=== PATIENT | female | born 1970 | race Caucasian/White ===

== ENCOUNTER → 2023-09-06 07:42 | Outpatient (REF) | payer OTHER, SELFPAY | LOC: HWRAD 07:42 | PROVIDERS: ATTENDING PHYSICIAN Advanced Practice Midwife; FAMILY PHYSICIAN Family Medicine | DX: N93.9 Abnormal uterine and vaginal bleeding, unspecified (principal) | CPT/HCPCS: 76830; 76856 ==

== ENCOUNTER 2023-09-09 07:46 | Emergency (ER) | payer OTHER, SELFPAY ==
[2023-09-09 07:47] VITALS: BP 152/80
[2023-09-09 08:08] VITALS: BP 152/88
--- NOTE | 2023-09-09 08:12 | ED.GENMED ---
History of Present Illness
General
Chief Complaint: Abdominal Symptoms
Source: patient
Exam Limitations: none
Time Seen by Provider: 09/09/23 07:58
Travel History
Have you had any contact with someone who has COVID-19?: No
Do you have any symptoms of coronavirus? Fever > 100 degrees, chills, cough, shortness of breath, sore throat, loss of taste or smell, muscle aches, or headache?: No
History of Present Illness
History of Present Illness:
52-year-old female presents with increased pelvic pain right greater than the left. She has had intermittent pelvic issues for quite some time. She admits that fairly constant vaginal bleeding for the last 2 months. She saw gynecology last week
and they ordered a pelvic ultrasound. She has a history of an ovarian cyst on the right side with a hydrosalpinx. The potential plan is to have her right ovary fallopian tube removed. She notes she is persistently bleeding and changing her tampon
or pad every hour. She notes she is slightly short of breath. Prior abdominal surgical history includes cholecystectomy. No urinary symptoms. No flank pain. No fever or vomiting
Past History
Past History
ED Past Medical History: Other (IBS, Ovarian cyst)
ED Past Surgical History: Cholecystectomy
Social History
Tobacco: Non-smoker
Alcohol: None
Personal:
Living: with family
Phy Exam
Physical Exam
Physical Exam:
General: Well-appearing female no acute respiratory distress
HEENT: Normocephalic atraumatic
Heart: Regular rate and rhythm no murmurs
Lungs: Clear to auscultation bilaterally no wheezing
Abdomen is soft tender to the suprapubic region no guarding or rebound normal bowel sounds
Extremities: No cyanosis
Course
Orders/Labs/Results
Orders:
Orders
09/09/23 08:11
Test Result ONCE
09/09/23 08:16
Complete Blood Count/With Diff Urgent
09/09/23 09:00
Comprehensive Metabolic Panel Urgent
HCG, Serum Qualitative Screen Urgent
09/09/23 09:02
CT Abd/pelvis W Iv Cont Urgent
Comment:
Reason For Exam: pelvic pain
09/09/23 10:29
Urinalysis Reflex To Culture Urgent
Date Specimen was Collected: 09/09/23
Time Specimen was Collected: 09:42
Urine Microscopic Reflex Cult Urgent
09/09/23 12:07
Ketorolac [Toradol] 15 mg IV NOW STA
Abnormal Lab Results
09/09/23 09/09/23 09/09/23
08:16 09:00 10:29
WBC 24.8 H 10^3/uL
(4.8-10.8)
Hgb 9.0 L g/dL
(12.0-16.0)
Hct 29.5 L %
(37.0-47.0)
MCV 68.3 L fL
(81.0-99.0)
MCH 20.8 L pg
(27.0-31.0)
MCHC 30.5 L g/dL
(33.0-37.0)
RDW 15.7 H %
(11.5-14.5)
Abs Immat Gran (auto) 0.2 H 10^3/uL
(0-0.05)
Absolute Neuts (auto) 21.3 H 10^3/uL
(1.4-6.5)
Absolute Monos (auto) 1.8 H 10^3/uL
(0.1-0.6)
Immature Gran % 0.8 H %
(0-0.5)
Neutrophils % 85.9 H %
(42.2-75.2)
Lymphocytes % 5.7 L %
(20.5-51.1)
Sodium 132 L mmol/L
(135-145)
BUN 6 L mg/dl
(7-17)
Glucose 121 H mg/dl
(70-99)
AST 53 H U/L
(14-36)
ALT 58 H U/L
(0-35)
Alkaline Phosphatase 162 H U/L
(38-126)
Urine Ketones 2+ A
(Negative)
Ur Occult Blood Reflex 3+ A
(Negative)
Urine RBC 3-6 A /HPF
(0-2)
09/09/23 08:16
09/09/23 09:00
Vital Signs
Initial and Last Documented VS:
Initial Vital Signs
Temp Pulse Resp BP Pulse Ox
97.6 F 100 16 152/80 97
09/09/23 07:47 09/09/23 07:47 09/09/23 07:47 09/09/23 07:47 09/09/23 07:47
Last Documented Vital Signs
Temp Pulse Resp BP Pulse Ox
97.6 F 100 16 130/73 99
09/09/23 07:47 09/09/23 07:47 09/09/23 07:47 09/09/23 09:00 09/09/23 09:15
MDM/Problems Addressed
Differential Diagnosis Includes:
Pelvic pain with ongoing vaginal bleeding. Will check for anemia secondary to bleeding. Patient had pelvic ultrasound done 2 days ago which I reviewed and demonstrates cystic mass in the right adnexa likely ovarian cyst with a hydrosalpinx. Will
check labs. Check urinalysis and test.
*Critical Care Note
Total Time (30-74mins, 75-104mins- exclusive of procedures): Not Applicable
Update Note
Update Note:
Patient reevaluated multiple times. She was given Toradol for pain. Labs reveal leukocytosis with a white blood cell count of 24.8. She is afebrile vital signs are stable. CT demonstrates thickened endometrium measuring 2.5 cm. Differential
could include endometritis versus endometrial hyperplasia of her neoplastic process. Discussed these findings as well as laboratory findings with gynecology who evaluated the patient in the room. Will start the patient on TXA for her ongoing
bleeding. Unlikely patient has endometritis. Patient will follow-up closely with gynecology for further evaluation. Hemoglobin is 9
ED Attending Note
-
Portions of this chart may have been created with voice recognition software.� Occasional wrong word or��sound alike� substitutions may have occurred due to the inherent limitations of voice recognition software.
Discharge Plan
Departure
Patient Disposition: Home (Routine Discharge)
Date of Disposition: 09/09/23
Time of Disposition: 12:56
Patient with high blood pressure during this ER visit?: No
Discharge Problem:
Pelvic pain
Instructions: Bleeding Between Periods
Prescriptions:
New
tranexamic acid 650 mg tablet
1,300 mg PO BID 7 Days Qty: 28 0RF
No Action
amitriptyline 10 MG tablet
30 mg PO HS
drospirenone-ethinyl estradiol 1 EACH tablet
1 tab PO DAILY
cyanocobalamin (vitamin B-12) 1,000 MCG tablet
5,000 mcg PO DAILY
rizatriptan 10 MG tablet,disintegrating
10 mg PO DAILYPRN PRN (Reason: migraine)
ferrous sulfate [FeroSul] 325 MG tablet
325 mg PO DAILY
Referrals:
Gregory Alcazar MD [Family Provider] -
Activity Restrictions/Additional Instructions:
Take medications that were prescribed to help slow bleeding down as directed. Please follow-up with your size mixer for sooner appointment. Return for worsening symptoms otherwise
Interventions
Interventions:
*Risk Screen - Suicide Last Done: 09/09/23 08:17
*General Assessment Last Done: 09/09/23 08:17
*Neglect/Abuse Screening Last Done: 09/09/23 08:17
*ED COVID-19 Vaccine History Last Done: 09/09/23 07:47
FU-Tfzrvb-Uhptitucyk Assessment Last Done: 09/09/23 08:18
[2023-09-09 08:26] LABS: % Basophils 0.2 % (0-2); % Eosinophils 0.1 % (0-6); % Immature Granulocytes 0.8 % (0-0.5); % Lymphocytes 5.7 % (20.5-51.1); % Monocytes 7.3 % (1.7-9.3); % Neutrophils 85.9 % (42.2-75.2); Absolute Basophils 0.1 10^3/uL (0-0.2); Absolute Immature Granulocytes 0.2 10^3/uL (0-0.05); Absolute Lymphocytes 1.4 10^3/uL (1.2-3.4); Absolute Monocytes 1.8 10^3/uL (0.1-0.6); Absolute Neutrophils 21.3 10^3/uL (1.4-6.5); Hematocrit 29.5 % (37.0-47.0); Mean Corp Hgb Conc. 30.5 g/dL (33.0-37.0); Mean Corpuscular Hgb 20.8 pg (27.0-31.0); Mean Corpuscular Volume 68.3 fL (81.0-99.0); Mean Platelet Volume 8.4 fL (7.4-10.4); Nucleated Red Blood Cells % 0 %; Platelet Count 378 10^3/uL (130-400); Red Blood Cell Count 4.32 10^6/uL (4.20-5.40); Red Cell Dist. Width 15.7 % (11.5-14.5); White Blood Cell Count 24.8 10^3/uL (4.8-10.8)
[2023-09-09 09:00] VITALS: BP 130/73
[2023-09-09 09:18] LABS: HCG, Serum Qualitative Screen Negative
[2023-09-09 09:22] LABS: ALT (SGPT) 58 U/L (0-35); AST (SGOT) 53 U/L (14-36); Albumin 3.8 g/dl (3.5-5.0); Alkaline Phosphatase 162 U/L (38-126); Blood Urea Nitrogen 6 mg/dl (7-17); Calcium 8.5 mg/dl (8.4-10.2); Carbon Dioxide 25 mmol/L (22-30); Chloride 102 mmol/L (98-107); Glucose 121 mg/dl (70-99); Potassium 4.5 mmol/L (3.5-5.1); Sodium 132 mmol/L (135-145); Total Bilirubin 1.2 mg/dl (0.2-1.3); Total Protein 6.7 g/dl (6.3-8.2); eGFR > 60.00
[2023-09-09 10:00] VITALS: BP 139/81
[2023-09-09 10:38] LABS: Urine Albumin Negative (Neg - Trace); Urine Bilirubin Negative (Negative); Urine Character Clear (Clear); Urine Color Yellow; Urine Glucose Negative (Negative); Urine Ketone 2+ (Negative); Urine Leukocyte Negative (Negative); Urine Nitrite Negative (Negative); Urine Occult Blood 3+ (Negative); Urine Specific Gravity 1.015 (<1.030); Urine Urobilinogen Negative (Neg - 1+)
[2023-09-09 10:44] LABS: Urine Mucus Few
[2023-09-09 10:45] LABS: Urine Amorphous Seen; Urine White Cell 0-2 /HPF (0-5)
[2023-09-09] MEDS: TORADOL 15 MG IV (12:58)
[2023-09-09 13:00] VITALS: BP 135/80
== END 2023-09-09 13:10 | disposition home or self-care (01) ==
LOC: EMR 07:46
PROVIDERS: Physician Assistant; EMERGENCY PHYSICIAN Emergency Medicine; FAMILY PHYSICIAN Family Medicine; OTHER PHYSICIAN Obstetrics & Gynecology
DX: R10.2 Pelvic and perineal pain (principal); R06.02 Shortness of breath; R93.89 Abnormal findings on diagnostic imaging of other specified body structures; N93.9 Abnormal uterine and vaginal bleeding, unspecified; Z90.49 Acquired absence of other specified parts of digestive tract
CPT/HCPCS: 99284; 96374; 74177; 80053; 81003; 81015; 84703; 85025; Q9967

== ENCOUNTER 2023-09-20 06:20 | Day surgery (SDC) | payer OTHER, SELFPAY ==
[2023-09-20] VITALS (9 sets, daily range): BP systolic 120–152; BP diastolic 66–82; BMI 43.5
[2023-09-20] MEDS: NORMOSOL-R 1000 IV (08:57)
== END 2023-09-20 11:36 | disposition home or self-care (01) ==
LOC: SDS 06:20
PROVIDERS: ATTENDING PHYSICIAN Obstetrics & Gynecology
DX: N93.9 Abnormal uterine and vaginal bleeding, unspecified (principal); N84.0 Polyp of corpus uteri
CPT/HCPCS: 58558; 88305

== ENCOUNTER → 2024-08-04 09:30 | Outpatient (REF) | payer OTHER, SELFPAY | LOC: HWRAD 09:30 | PROVIDERS: ATTENDING PHYSICIAN Obstetrics & Gynecology; FAMILY PHYSICIAN Family Medicine | DX: N93.9 Abnormal uterine and vaginal bleeding, unspecified (principal) | CPT/HCPCS: 76830; 76856 ==

== ENCOUNTER → 2024-09-04 07:27 | Outpatient (REF) | payer OTHER, SELFPAY | LOC: MRI 07:27 | PROVIDERS: ATTENDING PHYSICIAN Obstetrics & Gynecology; FAMILY PHYSICIAN Family Medicine | DX: R10.31 Right lower quadrant pain (principal) | CPT/HCPCS: 72197; A9575 ==

== ENCOUNTER 2024-09-22 07:03 | Day surgery (SDC) | payer OTHER, SELFPAY ==
[2024-09-15 10:52] LABS: % Basophils 0.8 % (0-2); % Immature Granulocytes 0.5 % (0-0.5); % Lymphocytes 23.1 % (20.5-51.1); % Monocytes 8.9 % (1.7-9.3); % Neutrophils 63.7 % (42.2-75.2); Absolute Basophils 0.1 10^3/uL (0-0.2); Absolute Eosinophils 0.2 10^3/uL (0-0.7); Absolute Lymphocytes 1.5 10^3/uL (1.2-3.4); Absolute Monocytes 0.6 10^3/uL (0.1-0.6); Absolute Neutrophils 4.2 10^3/uL (1.4-6.5); Hematocrit 44.3 % (37.0-47.0); Hemoglobin 13.4 g/dL (12.0-16.0); Mean Corp Hgb Conc. 30.2 g/dL (33.0-37.0); Mean Corpuscular Hgb 24.7 pg (27.0-31.0); Mean Corpuscular Volume 81.7 fL (81.0-99.0); Mean Platelet Volume 9.1 fL (7.4-10.4); Nucleated Red Blood Cells % 0 %; Platelet Count 326 10^3/uL (130-400); Red Blood Cell Count 5.42 10^6/uL (4.20-5.40); Red Cell Dist. Width 17.1 % (11.5-14.5); White Blood Cell Count 6.6 10^3/uL (4.8-10.8)
[2024-09-15 11:14] LABS: Blood Urea Nitrogen 12 mg/dl (7-17); Calcium 9.6 mg/dl (8.4-10.2); Carbon Dioxide 27 mmol/L (22-30); Chloride 104 mmol/L (98-107); Glucose 93 mg/dl (70-99); Potassium 4.9 mmol/L (3.5-5.1); Sodium 139 mmol/L (135-145); eGFR > 60.00
[2024-09-15 11:29] LABS: Beta HCG Quantitative < 2.39 mIU/ml
[2024-09-15 11:45] LABS: CA 125 10.2 U/mL (0-35)
[2024-09-15 14:09] VITALS: BMI 42.6
[2024-09-22] VITALS (7 sets, daily range): BP systolic 121–144; BP diastolic 66–82; BMI 42.6
[2024-09-22] MEDS: NORMOSOL-R/PLASMALYTE-A 1000 IV (11:05)
[2024-09-22] MEDS: TYLENOL 1000 MG PO (11:54)
[2024-09-22] MEDS: NEURONTIN 300 MG PO (11:54)
[2024-09-22 13:59] LABS: Urine Albumin Negative (Neg - Trace); Urine Bilirubin Negative (Negative); Urine Character Clear (Clear); Urine Color Yellow; Urine Glucose Negative (Negative); Urine Ketone 2+ (Negative); Urine Leukocyte Negative (Negative); Urine Nitrite Negative (Negative); Urine Occult Blood Negative (Negative); Urine Specific Gravity 1.015 (<1.030); Urine Urobilinogen Negative (Neg - 1+)
[2024-09-22] MEDS: DEMEROL 12.5 MG IV (15:08)
--- NOTE | 2024-09-22 15:35 | W.IMMPOSTOP ---
Surgical Immed Post Op Note
-
Primary Surgeon: Gemini Reed DO
Assisting Surgeon: n/a
Pre-op Diagnosis: menorrhagia
Post-op Diagnosis: same
Procedure Performed: Hysteroscopy D&C
Anesthesia Type: general LMA Dr. Balderas
Specimen / Cultures: 1. endocervical curettings 2. endometrial curettings
Estimated Blood Loss: 5ml
Complications: none
Fluid deficit: 35ml NSS
Operative Findings: Enlarged uterus approx 11-12 cm size, bilateral tubal ostia seen, no evidence of polyp tumor or mass.
Stable to recovery.
== END 2024-09-22 16:25 | disposition home or self-care (01) ==
LOC: SDS 07:03
PROVIDERS: ATTENDING PHYSICIAN Obstetrics & Gynecology; FAMILY PHYSICIAN Family Medicine
DX: N72 Inflammatory disease of cervix uteri (principal); N92.0 Excessive and frequent menstruation with regular cycle
CPT/HCPCS: 58558; 88305; 36415; 80048; 81003; 84702; 85025; 86304; 86850; 86900; 86901; 93005

== ENCOUNTER 2024-10-30 06:16 | Day surgery (SDC) | payer OTHER, SELFPAY ==
[2024-10-27 08:44] LABS: % Basophils 0.7 % (0-2); % Eosinophils 2.7 % (0-6); % Immature Granulocytes 0.6 % (0-0.5); % Lymphocytes 22.6 % (20.5-51.1); % Monocytes 9.1 % (1.7-9.3); % Neutrophils 64.3 % (42.2-75.2); Absolute Basophils 0.1 10^3/uL (0-0.2); Absolute Eosinophils 0.2 10^3/uL (0-0.7); Absolute Lymphocytes 1.6 10^3/uL (1.2-3.4); Absolute Monocytes 0.7 10^3/uL (0.1-0.6); Absolute Neutrophils 4.6 10^3/uL (1.4-6.5); Hematocrit 44.9 % (37.0-47.0); Hemoglobin 13.9 g/dL (12.0-16.0); Mean Corpuscular Hgb 25.2 pg (27.0-31.0); Mean Corpuscular Volume 81.5 fL (81.0-99.0); Mean Platelet Volume 8.7 fL (7.4-10.4); Nucleated Red Blood Cells % 0 %; Platelet Count 290 10^3/uL (130-400); Red Blood Cell Count 5.51 10^6/uL (4.20-5.40); Red Cell Dist. Width 16.5 % (11.5-14.5); White Blood Cell Count 7.1 10^3/uL (4.8-10.8)
[2024-10-27 09:21] LABS: Blood Urea Nitrogen 14 mg/dl (7-17); Calcium 9.3 mg/dl (8.4-10.2); Carbon Dioxide 27 mmol/L (22-30); Chloride 105 mmol/L (98-107); Glucose 105 mg/dl (70-99); Potassium 5.1 mmol/L (3.5-5.1); Sodium 142 mmol/L (135-145); eGFR > 60.00
[2024-10-27 09:28] LABS: Beta HCG Quantitative 2.71 mIU/ml
[2024-10-27 13:50] VITALS: BMI 44.3
[2024-10-30] VITALS (15 sets, daily range): BP systolic 118–170; BP diastolic 56–97; BMI 44.3
[2024-10-30] MEDS: NEURONTIN 300 MG PO (07:33)
[2024-10-30] MEDS: TYLENOL 1000 MG PO (07:33)
[2024-10-30] MEDS: NORMOSOL-R/PLASMALYTE-A 1000 IV (07:34)
--- NOTE | 2024-10-30 12:46 | W.IMMPOSTOP ---
Surgical Immed Post Op Note
-
Primary Surgeon: Gemini Reed DO
Filling Station Laborer: BRENDA Barrientos
Pre-op Diagnosis: Menorrhagia; probable adenomyosis, complex right ovarian cyst, right hydrosalpinx
Post-op Diagnosis: same; right ovarian endometrioma, extensive abdominal and pelvic adhesions
Procedure Performed: Robotic total laparoscopic hysterectomy right salpingo-oopherectomy, left salpingectomy, lysis adhesions (Derek); cystoscopy with bilateral stent placement for evaluation of ureters (Dr. Carty)
Anesthesia Type: general ET Dr. Heck
Intraoperative consult Dr. Carty for cystoscopy and bilateral stent placement due to adhesions, scar tissue.
Specimen / Cultures: 1. pelvic washings 2. uterus, cervix, right tube and ovary, left fallopian tube
Estimated Blood Loss: 30ml
Urine output 400mL clear yellow
Complications: none
Operative Findings: Globular shaped uterus suggestive of adenomyosis; sounded to 10cm. Left fallopian tube with adhesions. Atrophic appearing left ovary. Right hydrosalpinx and enlarged right ovary approximately 6cm size with endometriosis and
surrounding adhesions of small bowel epiploica and to peritoneum. Scarring noted along anterior uterus and cervix. Omental adhesions to anterior abdominal wall.
Bladder intact, bilateral ureteral jets seen. Stents placed easily per Dr. Carty. Stents removed at end of case.
Counts correct times 2.
Stable to recovery.
--- NOTE | 2024-10-30 13:21 | SUR.PHASEI ---
patient very sleepy, arouses to name, only c/o is urge to void, explained to patient that denise was just removed - may give sensation to void. small scratch noted right side of face secondary to tape from ETT. vss - though BP much lower than preop.
Noted sleep apnea, stimulated to deep breath, less periods of apnea now.
[2024-10-30] MEDS: ROXICODONE 5 MG PO (16:23)
== END 2024-10-30 16:30 | disposition home or self-care (01) ==
LOC: SDS 06:16
PROVIDERS: ATTENDING PHYSICIAN Obstetrics & Gynecology; FAMILY PHYSICIAN Family Medicine
DX: N92.0 Excessive and frequent menstruation with regular cycle (principal); N83.291 Other ovarian cyst, right side; N70.11 Chronic salpingitis; N80.129 Deep endometriosis of ovary, unspecified ovary; N73.6 Female pelvic peritoneal adhesions (postinfective)
CPT/HCPCS: 58571; 52332; 88305; 88307; 36415; 80048; 84702; 85025; 86850; 86900; 86901; 88112; A4300; C1769